=== PATIENT | female | born 1975 | race African-American/Black ===

== ENCOUNTER 2018-05-06 13:39 | Emergency (ER) | payer BC ==
[~2018-05-06] VITALS: Ht 165.1 cm; Wt 91.0 kg
[2018-05-06 16:09] VITALS: BP 156/88
== END 2018-05-06 16:18 | disposition home or self-care (01) ==
LOC: ER 13:39
DX: J06.9 Acute upper respiratory infection, unspecified (principal)
CPT/HCPCS: 87070; 87430; 99283; 99284

== ENCOUNTER → 2020-12-20 | Outpatient (CLI) | payer BC ==
[2020-12-20 08:19] LABS: BASOPHILS % 0.6 % (0.0-2.0); EOSINOPHILS % 1.2 % (0.0-5.0); HEMATOCRIT. 38.1 % (36.0-48.0); HEMOGLOBIN. 12.8 g/dL (12.0-16.0); LYMPHOCYTES % 18.5 % (20.0-50.0); MEAN CORPUSCULAR HEMOGLOBIN 27.3 pg (28.0-32.0); MEAN CORPUSCULAR VOLUME 81.1 fL (81.0-99.0); MEAN PLATELET VOLUME 8.5 fl (7.4-10.4); MONOCYTES % 7.4 % (2.0-8.0); NEUTROPHILS % 72.3 % (40.0-76.0); PLATELET 290 x1000/uL (130-400); RED BLOOD CELL COUNT 4.69 mill/uL (4.2-5.4); RED CELL DISTRIBUTION WIDTH 13.6 % (11.6-14.6)
[2020-12-20 08:25] LABS: CHLORIDE 106 mEq/L (98-107)
[2020-12-20 08:34] LABS: LDL CHOLESTEROL 97 mg/dL (5-100)
[2020-12-20 08:38] LABS: HDL CHOLESTEROL 40 mg/dL (40-59)
== END | disposition home or self-care (01) ==
LOC: LAB 07:28
PROVIDERS: ATTEND Internal Medicine Critical Care Medicine
DX: R05 Cough (principal)
CPT/HCPCS: 36415; 71045; 80053; 80061; 84443; 85025